=== PATIENT | female | born 1945 | race Caucasian/White ===

== ENCOUNTER 2020-10-07 09:35 | Inpatient (IN) ==
[2020-10-07 11:10] LABS: Basophils # 0.1 10*3/uL (0.0-0.2); Basophils % 1.5 % (0.0-0.8); Eosinophils # 0.2 10*3/uL (0.0-0.87); Eosinophils % 4.7 % (0.00-10.9); Hematocrit 36.5 VOL% (35.7-47.0); Hemoglobin 12.3 GM/DL (12.0-16.0); Immature Granulocytes % 0.5 %; Immature Granulocytes Absolute 0.02 #; Lymphocytes # 0.6 10*3/uL (1.4-4.0); Lymphocytes % 15.6 % (21.3-54.2); Mean Corpuscular HGB Conc 33.7 GM/DL (32-36); Mean Corpuscular Volume 87.5 FL (87-102); Mean Platelet Volume 9.5 FL (9.6-12.0); Monocytes % 17.6 % (1.7-12.7); Neutrophils % 60.1 % (38.7-73.9); Platelet Count 154 T/CUMM (130-400); Red Blood Count 4.17 MC/CUMM (3.8-5.5); Red Cell Distribution Width 15.3 % (9.3-17.3)
[2020-10-07 11:20] LABS: INR 1.1; PT Patient Result 11.9 SECS (9.8-11.9)
[2020-10-07 11:25] LABS: Albumin 3.4 G/DL (3.4-5.0); Bilirubin,Total 0.4 MG/DL (0.2-1.0); Calcium 8.3 MG/DL (8.5-10.1); Ferritin 35.3 ng/ml (8-252); Osmolality,Calculated 274.7 MOS/KG (273-304)
[2020-10-07] MEDS ORDERED: ONDANSETRON 4 MG/2 ML VIAL IV PRN (11:59)
[2020-10-07] MEDS ORDERED: guaiFENesin/DM ER 600-30 MG TABLET PO PRN (11:59)
[2020-10-07] MEDS ORDERED: ACETAMINOPHEN 325 MG TABLET PO PRN (11:59)
[2020-10-07 12:00] LABS: Eosinophils 4 % (0-10); Hypochromasia 1+; Lymphocytes 13 % (20-55); Segmented Neutrophils 66 % (50-85); Total Cells Counted 100
[2020-10-07 12:01] LABS: Microcytosis 1+; Platelet Estimate Adequate
[2020-10-07] MEDS ORDERED: REMDESIVIR 200 MG in SODIUM CHLORIDE 0.9% 210 ML IV ONE (14:00)
[2020-10-07] MEDS: DEXAMETHASONE 4 MG/1 ML VIAL IV SCH (16:15)
[2020-10-07] MEDS: FAMOTIDINE 20 MG TABLET PO SCH ×2 (16:16→21:41)
[2020-10-07] MEDS: ENOXAPARIN 40 MG/0.4 ML SYRINGE SUBCUT SCH (16:16)
[2020-10-07] MEDS: CHOLECALCIFEROL 1,000 UNIT TABLET PO SCH (16:16)
[2020-10-07] MEDS: ZINC GLUCONATE 50 MG TABLET PO SCH (16:16)
[2020-10-07] MEDS ORDERED: SODIUM CHLORIDE 0.9% 1,000 ML IV PRN (16:31)
[2020-10-07] MEDS: ALBUTEROL INHALER 18 GM INH SCH (19:20)
[2020-10-07] MEDS: GABAPENTIN 600 MG TABLET PO SCH (21:41)
[2020-10-07] MEDS: oxyCODONE/ACETAMINOPHEN 5-325 MG TABLET PO PRN (21:41)
[2020-10-07] MEDS: AMITRIPTYLINE 25 MG TABLET PO SCH (21:41)
[2020-10-07] MEDS: ATORVASTATIN 10 MG TABLET PO SCH (21:41)
[2020-10-07] MEDS: ASCORBIC ACID 500 MG TABLET PO SCH (21:41)
[2020-10-07] MEDS: guaiFENesin/DM ER 600-30 MG TABLET PO SCH (21:41)
[2020-10-08] MEDS: ALBUTEROL INHALER 18 GM INH SCH ×4 (00:47→18:28)
[2020-10-08 06:53] LABS: Basophils % 0.4 % (0.0-0.8); Hematocrit 38.7 VOL% (35.7-47.0); Hemoglobin 12.6 GM/DL (12.0-16.0); Immature Granulocytes % 0.4 %; Immature Granulocytes Absolute 0.01 #; Lymphocytes # 0.6 10*3/uL (1.4-4.0); Lymphocytes % 25.3 % (21.3-54.2); Mean Corpuscular HGB Conc 32.6 GM/DL (32-36); Mean Platelet Volume 9.9 FL (9.6-12.0); Monocytes % 17.6 % (1.7-12.7); Neutrophils % 56.3 % (38.7-73.9); Platelet Count 153 T/CUMM (130-400); Red Blood Count 4.35 MC/CUMM (3.8-5.5); Red Cell Distribution Width 14.9 % (9.3-17.3); White Blood Count 2.3 T/CUMM (4-12)
[2020-10-08] MEDS ORDERED: LEVOTHYROXINE 112 MCG TABLET PO SCH (07:00)
[2020-10-08 07:07] LABS: Albumin 3.2 G/DL (3.4-5.0); Bilirubin,Total 0.4 MG/DL (0.2-1.0); Calcium 8.5 MG/DL (8.5-10.1); Ferritin 46.9 ng/ml (8-252); Osmolality,Calculated 274.7 MOS/KG (273-304); Total Protein 7.1 G/DL (6.4-8.3)
[2020-10-08 07:11] LABS: Risk Ratio 1.91; Thyroid Stimulating Hormone 0.035 uIU/ml (0.358-3.74); VLDL CHOLESTEROL 9.2 MG/DL
[2020-10-08 08:05] LABS: Sedimentation Rate-Westergren 17 MM/HR (0-30)
[2020-10-08 08:20] LABS: Anisocytosis Slight; Band Neutrophils 8 % (0-10); Lymphocytes 23 % (20-55); Platelet Estimate Normal; Segmented Neutrophils 53 % (50-85); Total Cells Counted 100
[2020-10-08] MEDS: amLODIPine 5 MG TABLET PO SCH (09:30)
[2020-10-08] MEDS: REMDESIVIR 100 MG in SODIUM CHLORIDE 0.9% 100 ML IV SCH (09:30)
[2020-10-08] MEDS: MONTELUKAST 10 MG TABLET PO SCH (09:30)
[2020-10-08] MEDS: DEXAMETHASONE 4 MG/1 ML VIAL IV SCH (09:30)
[2020-10-08] MEDS: PANTOPRAZOLE 40 MG TABLET PO SCH (09:30)
[2020-10-08] MEDS: guaiFENesin/DM ER 600-30 MG TABLET PO SCH ×2 (09:30→20:52)
[2020-10-08] MEDS: CELECOXIB 200 MG CAPSULE PO SCH (09:30)
[2020-10-08] MEDS: FAMOTIDINE 20 MG TABLET PO SCH ×2 (09:30→20:52)
[2020-10-08] MEDS: FENOFIBRATE 145 MG TABLET PO SCH (09:30)
[2020-10-08] MEDS: CHOLECALCIFEROL 1,000 UNIT TABLET PO SCH (09:30)
[2020-10-08] MEDS: MULTIVITAMIN (CENTRUM) TABLET PO SCH (09:30)
[2020-10-08] MEDS: ASPIRIN EC 81 MG TABLET PO SCH (09:30)
[2020-10-08] MEDS: HYDROXYCHLOROQUINE 200 MG TABLET PO SCH (09:30)
[2020-10-08] MEDS: MULTIVITAMIN (BEROCCA) TABLET PO SCH (09:30)
[2020-10-08] MEDS: FOLIC ACID 1 MG TABLET PO SCH (09:30)
[2020-10-08] MEDS: ASCORBIC ACID 500 MG TABLET PO SCH ×2 (09:30→20:52)
[2020-10-08] MEDS: ENOXAPARIN 40 MG/0.4 ML SYRINGE SUBCUT SCH (11:50)
[2020-10-08] MEDS: GABAPENTIN 600 MG TABLET PO SCH (20:52)
[2020-10-08] MEDS: AMITRIPTYLINE 25 MG TABLET PO SCH (20:52)
[2020-10-08] MEDS: oxyCODONE/ACETAMINOPHEN 5-325 MG TABLET PO PRN (20:52)
[2020-10-08] MEDS: ATORVASTATIN 10 MG TABLET PO SCH (20:52)
[2020-10-09] MEDS: ALBUTEROL INHALER 18 GM INH SCH ×4 (00:49→19:01)
[2020-10-09] MEDS: LEVOTHYROXINE 100 MCG TABLET PO SCH (06:10)
[2020-10-09] MEDS: ZINC GLUCONATE 50 MG TABLET PO SCH (08:38)
[2020-10-09] MEDS: guaiFENesin/DM ER 600-30 MG TABLET PO SCH ×2 (08:38→21:39)
[2020-10-09] MEDS: FAMOTIDINE 20 MG TABLET PO SCH ×2 (08:38→21:39)
[2020-10-09] MEDS: CHOLECALCIFEROL 1,000 UNIT TABLET PO SCH (08:38)
[2020-10-09] MEDS: HYDROXYCHLOROQUINE 200 MG TABLET PO SCH (08:38)
[2020-10-09] MEDS: FENOFIBRATE 145 MG TABLET PO SCH (08:38)
[2020-10-09] MEDS: MULTIVITAMIN (BEROCCA) TABLET PO SCH (08:39)
[2020-10-09] MEDS: MONTELUKAST 10 MG TABLET PO SCH (08:39)
[2020-10-09] MEDS: FOLIC ACID 1 MG TABLET PO SCH (08:39)
[2020-10-09] MEDS: ASCORBIC ACID 500 MG TABLET PO SCH ×2 (08:39→21:40)
[2020-10-09] MEDS: MULTIVITAMIN (CENTRUM) TABLET PO SCH (08:39)
[2020-10-09] MEDS: ASPIRIN EC 81 MG TABLET PO SCH (08:39)
[2020-10-09] MEDS: amLODIPine 5 MG TABLET PO SCH (08:39)
[2020-10-09] MEDS: CELECOXIB 200 MG CAPSULE PO SCH (08:39)
[2020-10-09] MEDS: DEXAMETHASONE 4 MG/1 ML VIAL IV SCH (08:40)
[2020-10-09] MEDS: PANTOPRAZOLE 40 MG TABLET PO SCH (08:40)
[2020-10-09] MEDS: REMDESIVIR 100 MG in SODIUM CHLORIDE 0.9% 100 ML IV SCH (10:04)
[2020-10-09] MEDS: ENOXAPARIN 40 MG/0.4 ML SYRINGE SUBCUT SCH (11:35)
[2020-10-09] MEDS: oxyCODONE/ACETAMINOPHEN 5-325 MG TABLET PO PRN ×2 (16:05→21:41)
[2020-10-09] MEDS: AMITRIPTYLINE 25 MG TABLET PO SCH (21:38)
[2020-10-09] MEDS: ATORVASTATIN 10 MG TABLET PO SCH (21:39)
[2020-10-09] MEDS: GABAPENTIN 600 MG TABLET PO SCH (21:40)
[2020-10-10] MEDS: ALBUTEROL INHALER 18 GM INH SCH ×4 (00:03→21:29)
[2020-10-10] MEDS: LEVOTHYROXINE 100 MCG TABLET PO SCH (06:07)
[2020-10-10 06:37] LABS: Basophils % 0.2 % (0.0-0.8); Eosinophils % 0.2 % (0.00-10.9); Hemoglobin 12.5 GM/DL (12.0-16.0); Immature Granulocytes % 0.2 %; Immature Granulocytes Absolute 0.01 #; Lymphocytes # 1.8 10*3/uL (1.4-4.0); Lymphocytes % 36.6 % (21.3-54.2); Mean Corpuscular HGB Conc 32.9 GM/DL (32-36); Mean Corpuscular Volume 88.6 FL (87-102); Mean Platelet Volume 10.1 FL (9.6-12.0); Monocytes % 14.1 % (1.7-12.7); Neutrophils % 48.7 % (38.7-73.9); Platelet Count 200 T/CUMM (130-400); Red Blood Count 4.29 MC/CUMM (3.8-5.5); Red Cell Distribution Width 15.2 % (9.3-17.3)
[2020-10-10 07:09] LABS: Alanine Aminotransferase 21 U/L (13-56); Albumin 3.2 G/DL (3.4-5.0); Alkaline Phosphatase 65 U/L (45-117); Aspartate Amino Transferase 20 U/L (0-37); Bilirubin,Total < 0.39 MG/DL (0.2-1.0); Blood Urea Nitrogen 16 MG/DL (7-18); Calcium 8.6 MG/DL (8.5-10.1); Estimated Glom Filtration Rate 71 ML/MIN; Ferritin 57.1 ng/ml (8-252); Glucose 83 MG/DL (74-106); Total Protein 7.1 G/DL (6.4-8.3)
[2020-10-10 07:16] LABS: INR 1.1; PT Patient Result 11.4 SECS (9.8-11.9)
[2020-10-10 08:07] LABS: Sedimentation Rate-Westergren 23 MM/HR (0-30)
[2020-10-10] MEDS ORDERED: POTASSIUM CHLORIDE 20 MEQ TABLET PO ONE (08:30)
[2020-10-10] MEDS: DEXAMETHASONE 4 MG/1 ML VIAL IV SCH (09:04)
[2020-10-10] MEDS: HYDROXYCHLOROQUINE 200 MG TABLET PO SCH (09:04)
[2020-10-10] MEDS: guaiFENesin/DM ER 600-30 MG TABLET PO SCH ×2 (09:04→21:26)
[2020-10-10] MEDS: MULTIVITAMIN (CENTRUM) TABLET PO SCH (09:04)
[2020-10-10] MEDS: CHOLECALCIFEROL 1,000 UNIT TABLET PO SCH (09:04)
[2020-10-10] MEDS: ASPIRIN EC 81 MG TABLET PO SCH (09:04)
[2020-10-10] MEDS: amLODIPine 5 MG TABLET PO SCH (09:04)
[2020-10-10] MEDS: CELECOXIB 200 MG CAPSULE PO SCH (09:04)
[2020-10-10] MEDS: MONTELUKAST 10 MG TABLET PO SCH (09:04)
[2020-10-10] MEDS: PANTOPRAZOLE 40 MG TABLET PO SCH (09:05)
[2020-10-10] MEDS: FENOFIBRATE 145 MG TABLET PO SCH (09:05)
[2020-10-10] MEDS: ASCORBIC ACID 500 MG TABLET PO SCH ×2 (09:05→21:26)
[2020-10-10] MEDS: FAMOTIDINE 20 MG TABLET PO SCH ×2 (09:05→21:26)
[2020-10-10] MEDS: MULTIVITAMIN (BEROCCA) TABLET PO SCH (09:05)
[2020-10-10] MEDS: FOLIC ACID 1 MG TABLET PO SCH (09:05)
[2020-10-10] MEDS: REMDESIVIR 100 MG in SODIUM CHLORIDE 0.9% 100 ML IV SCH (09:55)
[2020-10-10] MEDS: ENOXAPARIN 40 MG/0.4 ML SYRINGE SUBCUT SCH (11:33)
[2020-10-10] MEDS: oxyCODONE/ACETAMINOPHEN 5-325 MG TABLET PO PRN ×2 (14:54→21:27)
[2020-10-10] MEDS: GABAPENTIN 600 MG TABLET PO SCH (21:26)
[2020-10-10] MEDS: AMITRIPTYLINE 25 MG TABLET PO SCH (21:26)
[2020-10-10] MEDS: ATORVASTATIN 10 MG TABLET PO SCH (21:26)
[2020-10-11] MEDS: ALBUTEROL INHALER 18 GM INH SCH ×2 (02:57→08:45)
[2020-10-11] MEDS: LEVOTHYROXINE 100 MCG TABLET PO SCH (06:22)
[2020-10-11 07:14] LABS: Calcium 8.5 MG/DL (8.5-10.1); Osmolality,Calculated 277.5 MOS/KG (273-304)
[2020-10-11] MEDS: DEXAMETHASONE 4 MG/1 ML VIAL IV SCH (08:45)
[2020-10-11] MEDS: amLODIPine 5 MG TABLET PO SCH (08:46)
[2020-10-11] MEDS: HYDROXYCHLOROQUINE 200 MG TABLET PO SCH (08:46)
[2020-10-11] MEDS: PANTOPRAZOLE 40 MG TABLET PO SCH (08:46)
[2020-10-11] MEDS: CELECOXIB 200 MG CAPSULE PO SCH (08:46)
[2020-10-11] MEDS: FAMOTIDINE 20 MG TABLET PO SCH (08:46)
[2020-10-11] MEDS: ASPIRIN EC 81 MG TABLET PO SCH (08:46)
[2020-10-11] MEDS: CHOLECALCIFEROL 1,000 UNIT TABLET PO SCH (08:46)
[2020-10-11] MEDS: FENOFIBRATE 145 MG TABLET PO SCH (08:46)
[2020-10-11] MEDS: MULTIVITAMIN (BEROCCA) TABLET PO SCH (08:46)
[2020-10-11] MEDS: MULTIVITAMIN (CENTRUM) TABLET PO SCH (08:46)
[2020-10-11] MEDS: MONTELUKAST 10 MG TABLET PO SCH (08:47)
[2020-10-11] MEDS: REMDESIVIR 100 MG in SODIUM CHLORIDE 0.9% 100 ML IV SCH (08:47)
[2020-10-11] MEDS: ZINC GLUCONATE 50 MG TABLET PO SCH (08:47)
[2020-10-11] MEDS: ASCORBIC ACID 500 MG TABLET PO SCH (08:47)
[2020-10-11] MEDS: guaiFENesin/DM ER 600-30 MG TABLET PO SCH (08:47)
[2020-10-11] MEDS: FOLIC ACID 1 MG TABLET PO SCH (08:47)
[2020-10-11 11:11] VITALS: BP 143/68
== END 2020-10-11 11:40 | disposition home or self-care (01) | DRG 177 ==
LOC: N.ED 09:35 → N.EDINP 11:59 → N.2E 13:06
PROVIDERS: ADMIT Family Medicine; ATTEND Family Medicine